=== PATIENT | male | born 1965 | race Caucasian/White ===

== ENCOUNTER 2019-08-28 07:41 | Emergency (ER) | payer BC, OTHER ==
[~2019-08-28] VITALS: Ht 182.9 cm; Wt 100.0 kg
[2019-08-28] MEDS ORDERED: HYDROcodone/acetaminophen 5mg/325mg tablet PO ONE (08:05)
[2019-08-28] MEDS ORDERED: cyclobenzaprine 10mg tablet PO ONE (08:05)
[2019-08-28] MEDS ORDERED: ketorolac trometh inj. 60 MG/2 ML VIAL IM ONE (08:05)
[2019-08-28] MEDS ORDERED: CYCL-1 PO (08:07)
[2019-08-28] MEDS ORDERED: ACET-3067 PO (08:07)
== END 2019-08-28 08:27 | disposition home or self-care (01) ==
LOC: ER 07:41
DX: M54.12 Radiculopathy, cervical region (principal); G89.4 Chronic pain syndrome; Z79.899 Other long term (current) drug therapy
CPT/HCPCS: 96372; 99283; J1885